=== PATIENT | male | born 1945 | race American Indian/Alaskan Native ===

== ENCOUNTER 2017-05-08 12:38 | Inpatient (IN) | payer MEDICARE ==
[2017-05-08 13:28] LABS: Hematocrit 25.4 % (35.5-45.6); Hemoglobin 8.6 gm/dl (11.8-15.2); Mean Corpuscular HGB Conc 34 % (32-34); Mean Corpuscular Hemoglobin 34 pg (28-32); Mean Corpuscular Volume 100 fl (84-94); Platelet Count 224 K/mm3 (140-440); Red Blood Count 2.55 M/mm3 (3.65-5.03); Red Cell Distribution Width 14.9 % (13.2-15.2); White Blood Count 7.3 K/mm3 (4.5-11.0)
[2017-05-08 13:39] LABS: INR 0.95 (0.87-1.13)
[2017-05-08 13:41] LABS: Albumin 3.8 g/dL (3.9-5); Albumin/Globulin Ratio 1.1 %; Bilirubin,Total 0.8 mg/dL (0.1-1.2); Calcium 8.6 mg/dL (8.4-10.2); Chloride 93.2 mmol/L (98-107); Total Protein 7.4 g/dL (6.3-8.2)
[2017-05-08 13:45] LABS: Potassium 6.5 mmol/L (3.6-5.0)
[2017-05-08] MEDS ORDERED: PROVENTIL IH ONE (13:45)
--- NOTE | 2017-05-08 13:57 | Emergency Department Report ---
HPI - General Chief Complaint: Medical Clearance Time Seen by Provider: 05/08/17 13:43 - HPI HPI: Room 23 The patient is a 71-year-old male presenting with a chief complaint of insect renal disease. The patient has a history of end-stage renal disease who states she has not had dialysis past 5 days because he needed to keep an eye on his apartment while there were maintenance workers there. Patient states this morning he developed slight shortness of breath. Patient denies nausea or vomiting. Patient complains of pain in his left thigh and chronic back pain but denies any other complaints Location: Lungs, see above Duration: 1 Day Quality: Shortness of breath Severity: Mild Modifying factors: [see above] Context: [see above] Mode of transportation: [not driving] ED Past Medical Hx - Past Medical History Previous Medical History?: Yes Hx Diabetes: Yes Hx Renal Disease: Yes Hx of Cancer: Yes (Prostate) Hx Asthma: Yes Additional medical history: Hep-C - Surgical History Past Surgical History?: Yes Additional Surgical History: Neck/Spine, brachytherapy/seed implant for prostate , herniorrhaphy - Social History Smoking Status: Current Some Day Smoker Substance Use Type: None (denies illicit drug use) ED Review of Systems ROS: Stated complaint: NEEDS DIALYSIS,MISSED 5 DAYS Other details as noted in HPI Eyes: denies: eye pain ENT: denies: ear pain Respiratory: shortness of breath Cardiovascular: denies: chest pain Gastrointestinal: denies: abdominal pain, nausea, vomiting Musculoskeletal: back pain Neurological: denies: headache Physical Exam - Physical Exam Vital Signs: Vital Signs 05/08/17 05/08/17 12:50 13:48 Temperature 98.2 F 98.7 F Pulse Rate 88 85 Respiratory 20 13 Rate Blood Pressure 158/81 Blood Pressure 169/82 [Right] O2 Sat by Pulse 95 97 Oximetry Physical Exam: GENERAL: The patient is well-developed well-nourished male sitting on stretcher not appearing to be in acute distress. [] HEENT: Normocephalic. Atraumatic. Extraocular motions are intact. Patient has moist mucous membranes. NECK: Supple. Trachea midline CHEST/LUNGS: Occasional rhonchi. There is no respiratory distress noted. HEART/CARDIOVASCULAR: Regular. There is no tachycardia. There is no gallop rub or murmur. ABDOMEN: Abdomen is soft, nontender. Patient has normal bowel sounds. There is no abdominal distention. SKIN: There is no rash. There is no edema. There is no diaphoresis. NEURO: The patient is awake, alert, and oriented. The patient is cooperative. The patient has normal speech MUSCULOSKELETAL: There is no evidence of acute injury. ED Course Vital Signs 05/08/17 05/08/17 12:50 13:48 Temperature 98.2 F 98.7 F Pulse Rate 88 85 Respiratory 20 13 Rate Blood Pressure 158/81 Blood Pressure 169/82 [Right] O2 Sat by Pulse 95 97 Oximetry - Consultations Consultation #1: 05/08/17 13:53 Dr. Machado paged 05/08/17 15:[address] Machado- Will contact dialysis nurse and arrange for stat dialysis ED Medical Decision Making - Lab Data Result diagrams: 05/08/17 13:08 05/08/17 13:08 Laboratory Tests 05/08/17 05/08/17 05/08/17 13:08 13:08 13:08 WBC 7.3 RBC 2.55 L Hgb 8.6 L Hct 25.4 L MCV 100 H MCH 34 H MCHC 34 RDW 14.9 Plt Count 224 PT 13.2 INR 0.95 APTT 35.0 Sodium 135 L Potassium 6.5 H* Chloride 93.2 L Carbon Dioxide 19 L Anion Gap 29 BUN 91 H Creatinine 14.4 H Estimated GFR 3 BUN/Creatinine Ratio 6 Glucose 122 H Calcium 8.6 Total Bilirubin 0.80 AST 31 ALT 31 Alkaline Phosphatase 93 Total Protein 7.4 Albumin 3.8 L Albumin/Globulin Ratio 1.1 - EKG Data -: EKG Interpreted by Me EKG shows normal: sinus rhythm Rate: normal - EKG Data When compared to previous EKG there are: previous EKG unavailable Interpretation: other (peaked T waves) - Radiology Data Radiology results: image reviewed (chest x-ray) interpreted by me: Chest x-ray-no focal of interest, no pneumothorax - Differential Diagnosis end-stage renal disease, hyperkalemia, uremia Critical care attestation.: If time is entered above; I have spent that time in minutes in the direct care of this critically ill patient, excluding procedure time. ED Disposition Clinical Impression: End stage renal disease, Hyperkalemia, Uremia Disposition: OP ADMIT IP TO THIS HOSP Is pt being admited?: Yes Does the pt Need Aspirin: No Condition: Serious Referrals: PRIMARY CARE,MD [Primary Care Provider] - 3-5 Days Time of Disposition: 15:16 (hospitalist paged)
[2017-05-08] MEDS ORDERED: SODIUM BICARBONATE IV ONE (14:00)
[2017-05-08] MEDS ORDERED: D50W (25GM) Syringe IV ONE (14:45)
[2017-05-08] MEDS ORDERED: CALCIUM GLUCONATE 1,000 MG in NACL 0.9% 100 ML IV ONE (14:45)
[2017-05-08] MEDS ORDERED: D50W (25GM) Vial IV ONE ×2 (14:45)
--- NOTE | 2017-05-08 15:47 | Consultation ---
History of Present Illness - Reason for Consult Consult date: 05/08/17 end stage renal disease Requesting physician: MEDHAT CALLEJAS - History of Present Illness The patient is a 71-year-old male presenting with a chief complaint of end- stage renal disease. The patient has a history of end-stage renal disease who states she has not had dialysis past 5 days because he needed to keep an eye on his apartment while there were maintenance workers there. Patient states this morning he developed slight shortness of breath. Patient denies nausea or vomiting. Patient complains of pain in his left thigh and chronic back pain but denies any other complaints His potassium is found to be elevated at 6.5 and therefore he is being admitted for further management. He undergoes hemodialysis at [facility] under my care. Past History Past Medical History: diabetes, dialysis, hypertension Past Surgical History: Other (history of creation of AV fistula) Social history: other (patient does smoke a few cigarettes per day. Denies alcohol abuse) Family history: no significant family history (negative for kidney disease) Medications and Allergies Allergies Allergy/AdvReac Type Severity Reaction Status Date / Time Penicillins Allergy Unknown Verified 05/08/17 12:58 Home Medications Medication Instructions Recorded Confirmed Last Taken Type Albuterol Sulfate [Ventolin Hfa] 18 gm IH PRN 05/08/17 05/08/17 Unknown History Ascorbic Acid [Vitamin C] 1,000 mg PO DAILY 05/08/17 05/08/17 05/08/17 History Cranberry Fruit [Cranberry] 400 mg PO DAILY 05/08/17 05/08/17 05/08/17 History Diltiazem Cd [Cardizem Cd] 300 mg PO QDAY 05/08/17 05/08/17 05/08/17 History Docusate Sodium [Stool Softener] 100 mg PO PRN 05/08/17 05/08/17 05/08/17 History Fluticasone/Salmeterol [Advair 1 each IH PRN 05/08/17 05/08/17 Unknown History 500-50 Diskus] Folic Acid/Vit B Comp W-C [Renal 1 cap PO QDAY 05/08/17 05/08/17 05/08/17 History Caps] Levothyroxine [Synthroid] 75 mcg PO QAM 05/08/17 05/08/17 05/08/17 History Melatonin [Melatonin] 10 mg PO DAILY 05/08/17 05/08/17 05/08/17 History Oxycodone HCl [Roxicodone TAB] 15 mg PO Q6H PRN 05/08/17 05/08/17 05/08/17 History Ranitidine HCl [Acid Rental Car Porter] 150 mg PO BID 05/08/17 05/08/17 05/08/17 History Sevelamer Carbonate [Renvela] 800 mg PO TIDWM 05/08/17 05/08/17 05/08/17 History Tamsulosin [Flomax] 0.4 mg PO QDAY 05/08/17 05/08/17 05/08/17 History Review of Systems All systems: negative (negative except as noted above) Exam - Vital Signs Vital signs: Vital Signs Temp Pulse Resp BP Pulse Ox 98.2 F 88 20 158/81 95 05/08/17 12:50 05/08/17 12:50 05/08/17 12:50 05/08/17 12:50 05/08/17 12:50 - General Appearance General appearance: well-developed, well-nourished, appears stated age EENT: PERRL, mucous membranes moist Neck: Present: neck supple, trachea midline. Absent: JVD/HJR, Masses Respiratory: Clear to Ascultation Heart: regular, normal heart rate, S1S2, no murmurs Gastrointestinal: Present: normal, normoactive bowel sounds Integumentary: no rash, other (1+ edema. AV fistula in his left upper arm. Good bruit and thrill) Results - Lab Results 05/08/17 13:08 05/08/17 13:08 Most recent lab results Calcium 8.6 mg/dL (8.4-10.2) 05/08/17 13:08 Assessment and Plan Impression * End-stage renal disease on maintenance hemodialysis * Hyperkalemia * Hypertension * Fluid overload * Anemia secondary to ESRD * Diabetes * Noncompliance Recommendations * Shall arrange for hemodialysis as soon as possible for correction of his hyperkalemia and fluid removal * Shall recheck his chemistries again tomorrow and decide if he needs to have an additional dialysis treatment or not * Procrit with dialysis * No IV, BP venipuncture in his access arm * Adjusted diet and meds for ESRD state * Avoid nephrotoxins * Binders and diet * Thank you very much for the consultation. Shall follow along with you
--- NOTE | 2017-05-08 16:00 | XRay Report ---
AP CHEST : 05/08/17 12:38:00 CLINICAL: Shortness of breath. COMPARISON:None FINDINGS: Normal heart and pulmonary vessels.Mild aortic tortuosity. The lungs are normally expanded and clear. A left brachial stent and surgical clips in the left arm. IMPRESSION: No acute cardiopulmonary process.
[2017-05-08] MEDS ORDERED: NACL 0.9% 100 ML IV PRN (16:32)
[2017-05-08] MEDS ORDERED: PROCRIT IV PRN (16:38)
[2017-05-08] MEDS ORDERED: ZOFRAN IV PRN (17:00)
[2017-05-08] MEDS ORDERED: TYLENOL PO PRN (17:01)
[2017-05-08] MEDS ORDERED: PROVENTIL IH PRN (17:03)
[2017-05-08] MEDS ORDERED: D50W (25GM) Syringe IV PRN (17:06)
[2017-05-08] MEDS ORDERED: OXYCODONE HCL 15 MG PO PRN (17:11)
[2017-05-08] MEDS ORDERED: NON-FORMULARY (Fluticasone/Salmeterol [Advair 500-50 Diskus] 1 EACH) IH SCH (17:15)
[2017-05-08] MEDS ORDERED: ROXICODONE PO PRN (17:31)
[2017-05-08] MEDS ORDERED: COLACE PO SCH (18:00)
--- NOTE | 2017-05-08 18:11 | History and Physical Report ---
CHIEF COMPLAINT: Difficulty in breathing. HISTORY OF PRESENT ILLNESS: The patient is a 71-year-old male with end-stage renal disease, on dialysis, having difficulty in breathing going on. The patient said that he has not been dialyzed in 5 days because he needed to keep an eye on his apartment while there was maintenance work going on and this morning, the patient started being short of breath. Denies history of chest pain. Denies history of nausea and vomiting, but there is history of left thigh pain. There is no history of fever, no history of cough and patient presented to the Emergency Room where he was evaluated and found to have a high potassium level of 6.5. PAST MEDICAL HISTORY: Significant for diabetes mellitus, end-stage renal disease, on dialysis, prostate cancer, asthma, hepatitis C. PAST SURGICAL HISTORY: Pertinent for neck and spine surgery, brachytherapy/seed implant for prostate cancer, also the patient has surgical history of herniorrhaphy. FAMILY HISTORY: Noncontributory. SOCIAL HISTORY: The patient smokes cigarettes, does not drink alcohol, does not use illicit drugs. MEDICATIONS: The patient is on albuterol sulfate inhalation as needed for shortness of breath. Also, the patient is on vitamin C 1000 mg by mouth daily. The patient takes cranberry fruit 400 mg by mouth daily. The patient is also on diltiazem and Cardizem CD 300 mg by mouth daily. The patient is on docusate sodium, Colace 100 mg by mouth daily as needed for constipation. The patient is on Advair Diskus 500/50 one inhalation frequency unknown. The patient is also on folic acid/vitamin B complex 1 capsule by mouth daily. The patient is on levothyroxine 75 mcg daily, melatonin 10 mg by mouth daily. The patient is also on oxycodone 15 mg by mouth every 6 hours as needed for pain. The patient is also on ranitidine 150 mg by mouth twice daily and also the patient takes sevelamer or Renvela 800 mg t.i.d. , the patient is on tamsulosin 0.4 mg by mouth daily. ALLERGIES: The patient is allergic to PENICILLIN. REVIEW OF SYSTEMS: CONSTITUTIONAL: There is no fever, chills or diaphoresis. HEENT: There is no headache or sore throat. CARDIOVASCULAR: There is no chest pain or orthopnea. RESPIRATORY: Shortness of breath, but no cough. GASTROINTESTINAL: There is no nausea, no vomiting, no abdominal pain, diarrhea or constipation. NEUROLOGICAL: There is no numbness, no dizziness, no altered mental status. MUSCULOSKELETAL: There is no joint pain or swelling. DERMATOLOGICAL: There is no skin rash or lesion. GENITOURINARY: Dysuria, but no hematuria or flank pain. Rest of system review is normal. PHYSICAL EXAMINATION: GENERAL: At the time of exam, the patient was found to be alert, oriented x3 and not in acute distress. VITAL SIGNS: Show temperature of 98.7 degree Fahrenheit, pulse of 85, respirations 18, blood pressure 169/82, O2 sat of 97% on room air. HEENT: Pupils were equal, round, reactive to light and accommodation. Good Extraocular muscles are intact. NECK: Supple with no JVD or carotid bruits. CARDIOVASCULAR SYSTEM: Show first and second heart sounds, no gallops. RESPIRATORY: Showed good air entry on both sides of the lung with no abnormal breath sounds. GASTROINTESTINAL SYSTEM: Show abdomen to be full, soft, nontender with no organomegaly or rigidity. NEUROLOGIC: Shows no deficits in the nose into. MUSCULOSKELETAL SYSTEM: Show no joint swelling or tenderness. DERMATOLOGICAL SYSTEM: Show no skin rash. GENITOURINARY: Showing no costovertebral angle tenderness. PERTINENT LABORATORY AND IMAGING STUDIES: The patient has CBC done with low hemoglobin of 8.6 and low hematocrit of 25.4, normal WBC. Coagulation studies were unremarkable. Chemistry showed low sodium of 135 with high potassium of 6.5 and low chloride of 93.2 with elevated BUN of 91 and high creatinine of 14.4 consistent with end-stage renal disease. The patient's glucose level was high with a value of 175. Rest of chemistry was unremarkable. IMAGING STUDIES: The patient had a chest x-ray done that shows no acute cardiopulmonary lesion. DIAGNOSES: 1. Hyperkalemia. 2. End-stage renal disease, on dialysis. 3. Anemia. PLAN: The patient will be admitted to medical floor telemetry and we will continue with orders that we already put in by the back hoe operator, Dr. Machado who is on consult for treatment of both hyperkalemia and end stage renal disease. The patient will be on IV Zofran 4 mg every 6 hours as needed for nausea and vomiting and will be on Tylenol 650 mg by mouth every 4 hours for fever and headache. The patient will have albuterol nebulizer 2.5 mg every 6 hours as needed for shortness of breath and will be on Accu-Chek a.c. and at bedtime, followed by low-dose sliding scale using regular insulin. The patient will be on consistent carbohydrate diet with low-sodium diet and will also be on his home medications as shown in the medication reconciliation section. Further management of the patient's condition will be dependent on the nephrology consult. JOB# [id number] [facility]/AMAN BONNER
[2017-05-08] MEDS: BROVANA NEBU IH SCH (21:06)
[2017-05-08] MEDS: PULMICORT IH SCH (21:06)
[2017-05-08] MEDS ORDERED: NACL 0.9 (PRIMING MACHINE ONLY DIALYSIS) MC ONE (21:15)
[2017-05-08] MEDS ORDERED: NON-FORMULARY (Ranitidine Hcl [Acid Reducer] 150 MG) PO SCH (22:00)
[2017-05-09] MEDS ORDERED: SYNTHROID PO SCH (06:00)
[2017-05-09] MEDS: BROVANA NEBU IH SCH (07:43)
[2017-05-09] MEDS: PULMICORT IH SCH (07:43)
[2017-05-09] MEDS ORDERED: NON-FORMULARY (Melatonin [Melatonin] 10 MG) PO SCH (10:00)
[2017-05-09] MEDS ORDERED: FLOMAX PO SCH (10:00)
[2017-05-09] MEDS ORDERED: PEPCID PO SCH (10:00)
[2017-05-09] MEDS ORDERED: CRANBERRY FRUIT 400 MG PO SCH (10:00)
[2017-05-09] MEDS ORDERED: NON-FORMULARY (Ascorbic Acid [Vitamin C] 1,000 MG) PO SCH (10:00)
[2017-05-09] MEDS ORDERED: Renal Caps PO SCH (10:00)
[2017-05-09] MEDS ORDERED: CARDIZEM CD PO SCH (10:00)
[2017-05-09] MEDS ORDERED: VITAMIN C PO SCH (10:00)
[2017-05-09] MEDS ORDERED: NACL 0.9% 100 ML IV PRN (10:02)
--- NOTE | 2017-05-09 10:02 | Progress Note ---
Assessment and Plan Impression * End-stage renal disease on maintenance hemodialysis * Hyperkalemia * Hypertension * Fluid overload * Anemia secondary to ESRD * Diabetes * Noncompliance Recommendations * Uneventful hemodialysis yesterday * Today's chemistries are still pending. He however had missed dialysis for about 6 days and his outpatient days are Tuesdays, and Saturdays. Shall arrange for dialysis again today and keep him on his outpatient schedule * Procrit with dialysis * No IV, BP venipuncture in his access arm * Adjusted diet and meds for ESRD state * Avoid nephrotoxins * Binders and diet * No objection to discharge from renal standpoint after dialysis today Subjective Date of service: 05/09/17 Interval history: Patient is comfortable this morning. Uneventful hemodialysis yesterday. Denies any shortness of breath. Objective - Vital Signs Vital signs: Vital Signs - 12hr 05/08/17 05/08/17 05/09/17 22:15 23:22 00:00 Temperature 99.3 F 99.0 F Pulse Rate 92 H 91 H 90 Pulse Rate [ Bilateral Upper Lobe] Respiratory 18 20 Rate Respiratory Rate [Bilateral Upper Lobe] Blood Pressure 164/94 155/76 Blood Pressure 155/76 [Right] O2 Sat by Pulse 94 94 Oximetry 05/09/17 05/09/17 05/09/17 05:49 07:28 08:00 Temperature 99.5 F 100.7 F H Pulse Rate 87 92 H Pulse Rate [ 92 H Bilateral Upper Lobe] Respiratory 20 16 Rate Respiratory 18 Rate [Bilateral Upper Lobe] Blood Pressure 150/74 Blood Pressure 160/71 [Right] O2 Sat by Pulse 92 94 Oximetry 05/09/17 08:10 Temperature Pulse Rate Pulse Rate [ 77 Bilateral Upper Lobe] Respiratory Rate Respiratory 18 Rate [Bilateral Upper Lobe] Blood Pressure Blood Pressure [Right] O2 Sat by Pulse Oximetry - General Appearance General appearance: well-developed, well-nourished, appears stated age EENT: PERRL, mucous membranes moist Neck: no JVD, no thyromegaly, no carotid bruit, supple Respiratory: Present: Clear to Ascultation Cardiology: regular, normal heart rate Gastrointestinal: normal, normoactive bowel sounds Integumentary: no rash, other (AV fistula in his upper arm. Good bruit and thrill) - Lab 05/08/17 13:08 05/08/17 13:08 Most recent lab results Calcium 8.6 mg/dL (8.4-10.2) 05/08/17 13:08
[2017-05-09] MEDS: RENVELA PO SCH ×3 (10:04→19:00)
--- NOTE | 2017-05-09 10:50 | Progress Note ---
History Interval history: no new issues overnight. Hospitalist Physical - Constitutional Vitals: Temp Pulse Resp BP Pulse Ox 100.7 F H 77 18 150/74 94 05/09/17 07:28 05/09/17 08:10 05/09/17 08:10 05/09/17 07:28 05/09/17 07:28 General appearance: Present: no acute distress, well-nourished - EENT Eyes: Present: PERRL, EOM intact ENT: hearing intact, clear oral mucosa, dentition normal - Neck Neck: Present: supple, normal ROM - Respiratory Respiratory effort: normal Respiratory: bilateral: CTA - Cardiovascular Rhythm: regular Heart Sounds: Present: S1 & S2. Absent: gallop, rub - Extremities Extremities: no ischemia, No edema, Full ROM - Abdominal General gastrointestinal: soft, non-tender, non-distended, normal bowel sounds - Integumentary Integumentary: Present: clear, warm, dry - Neurologic Neurologic: CNII-XII intact, moves all extremities Results - Labs CBC & Chem 7: 05/08/17 13:08 05/08/17 13:08 Labs: Laboratory Last Values WBC 7.3 K/mm3 (4.5-11.0) 05/08/17 13:08 RBC 2.55 M/mm3 (3.65-5.03) L 05/08/17 13:08 Hgb 8.6 gm/dl (11.8-15.2) L 05/08/17 13:08 Hct 25.4 % (35.5-45.6) L 05/08/17 13:08 MCV 100 fl (84-94) H 05/08/17 13:08 MCH 34 pg (28-32) H 05/08/17 13:08 MCHC 34 % (32-34) 05/08/17 13:08 RDW 14.9 % (13.2-15.2) 05/08/17 13:08 Plt Count 224 K/mm3 (140-440) 05/08/17 13:08 PT 13.2 Sec. (12.2-14.9) 05/08/17 13:08 INR 0.95 (0.87-1.13) 05/08/17 13:08 APTT 35.0 Sec. (24.2-36.6) 05/08/17 13:08 Sodium 135 mmol/L (137-145) L 05/08/17 13:08 Potassium 6.5 mmol/L (3.6-5.0) H* 05/08/17 13:08 Chloride 93.2 mmol/L (98-107) L 05/08/17 13:08 Carbon Dioxide 19 mmol/L (22-30) L 05/08/17 13:08 Anion Gap 29 mmol/L 05/08/17 13:08 BUN 91 mg/dL (9-20) H 05/08/17 13:08 Creatinine 14.4 mg/dL (0.8-1.5) H 05/08/17 13:08 Estimated GFR 3 ml/min 05/08/17 13:08 BUN/Creatinine Ratio 6 % 05/08/17 13:08 Glucose 122 mg/dL (75-100) H 05/08/17 13:08 POC Glucose 94 (70-105) 05/09/17 07:00 Calcium 8.6 mg/dL (8.4-10.2) 05/08/17 13:08 Total Bilirubin 0.80 mg/dL (0.1-1.2) 05/08/17 13:08 AST 31 units/L (5-40) 05/08/17 13:08 ALT 31 units/L (7-56) 05/08/17 13:08 Alkaline Phosphatase 93 units/L (35-129) 05/08/17 13:08 Total Protein 7.4 g/dL (6.3-8.2) 05/08/17 13:08 Albumin 3.8 g/dL (3.9-5) L 05/08/17 13:08 Albumin/Globulin Ratio 1.1 % 05/08/17 13:08
--- NOTE | 2017-05-09 10:54 | Discharge Summary ---
Providers - Providers Date of Admission: 05/08/17 16:56 Date of discharge: 05/09/17 Attending physician: KENNETH FARR 05/08/17 15:13 Consult to Physician [CONS] Stat Consulting Provider: JAYLA NETTLES Reason For Exam: hyperkalemia, end-stage renal disease Place consult to:: phone Notified:: y If yes, spoke with:: DR NETTLES Primary care physician: UTILITIES OPERATOR Hospitalization Reason for admission: missed HD Condition: Serious Hospital course: The patient is a 71-year-old male presenting with a chief complaint of end- stage renal disease. The patient has a history of end-stage renal disease who states he has not had dialysis past 5 days because he needed to keep an eye on his apartment while there were maintenance workers there. Patient stated this morning he developed slight shortness of breath. Patient denied nausea or vomiting. His potassium is found to be elevated at 6.5 and therefore he was admitted for further management. Nephrology saw the patient in consultation and the patient received hemodialysis 2 sessions with resolution of hyperkalemia and respiratory symptoms. Dedicated discharge time 31 minutes Disposition: DC-01 TO HOME OR SELFCARE Time spent for discharge: 31 - Discharge Diagnoses (1) End stage renal disease Status: Acute (2) Hyperkalemia Status: Acute (3) Uremia Status: Acute Core Measure Documentation - Palliative Care Palliative Care/ Comfort Measures: Not Applicable - Core Measures Any of the following diagnoses?: none Exam - Constitutional Vitals: Temp Pulse Resp BP Pulse Ox 100.7 F H 77 18 150/74 94 05/09/17 07:28 05/09/17 08:10 05/09/17 08:10 05/09/17 07:28 05/09/17 07:28 General appearance: Present: no acute distress, well-nourished - EENT Eyes: Present: PERRL ENT: hearing intact, clear oral mucosa - Neck Neck: Present: supple, normal ROM - Respiratory Respiratory effort: normal Respiratory: bilateral: CTA - Cardiovascular Heart Sounds: Present: S1 & S2. Absent: rub, click - Extremities Extremities: pulses symmetrical, No edema Peripheral Pulses: within normal limits - Abdominal General gastrointestinal: Present: soft, non-tender, non-distended, normal bowel sounds Male genitourinary: Present: normal - Integumentary Integumentary: Present: clear, warm, dry - Musculoskeletal Musculoskeletal: gait normal, strength equal bilaterally - Psychiatric Psychiatric: appropriate mood/affect, intact judgment & insight - Neurologic Neurologic: CNII-XII intact, moves all extremities Plan Activity: no restrictions Weight Bearing Status: Full Weight Bearing Diet: renal Follow up with: PRIMARY CARE, [Primary Care Provider] - 3-5 Days JAYLA NETTLES MD [Staff Physician] - 7 Days
[2017-05-09 12:50] VITALS: BP 145/76
[2017-05-09 13:13] LABS: Calcium 8.8 mg/dL (8.4-10.2)
[2017-05-09 13:14] LABS: Chloride 93.5 mmol/L (98-107); Potassium 5.3 mmol/L (3.6-5.0)
[2017-05-09 16:23] LABS: Calcium 8.8 mg/dL (8.4-10.2); Chloride 93.5 mmol/L (98-107); Potassium 5.3 mmol/L (3.6-5.0)
== END 2017-05-09 19:15 | disposition home or self-care (01) | DRG 640 ==
LOC: ED 12:38 → 4A 16:56
PROVIDERS: ADMIT Internal Medicine; ATTEND Hospitalist
PROC: 5A1D70Z Performance of Urinary Filtration, Intermittent, Less than 6 Hours Per Day (ICD-10-PCS; principal; 2017-05-08)
DX: E87.5 Hyperkalemia (principal); N18.6 End stage renal disease; I12.0 Hypertensive chronic kidney disease with stage 5 chronic kidney disease or end stage renal disease; D64.9 Anemia, unspecified; Z88.0 Allergy status to penicillin; E11.22 Type 2 diabetes mellitus with diabetic chronic kidney disease; Z99.2 Dependence on renal dialysis; E87.70 Fluid overload, unspecified; Z91.19 Patient's noncompliance with other medical treatment and regimen
CPT/HCPCS: 36415; 71010; 80048; 80053; 82962; 85027; 85610; 85730; 93005; 93010; 94640; 96374; 96375; J0610; J0885; J1815; J7030